=== PATIENT | male | born 1960 ===

== ENCOUNTER 2017-12-12 10:48 | Day surgery (SDC) | payer BC ==
[2017-12-04 10:32] VITALS: BMI 37.8
[2017-12-12] MEDS ORDERED: ceFAZolin IV 1 gm in Dextrose 2 GM/100 ML BAG IVPB ONE (14:42)
[2017-12-12] MEDS ORDERED: Bupivacaine 0.25% 20 ML INJ IJ ONE (14:43)
[2017-12-12] MEDS ORDERED: Lidocaine/Epinephrine 1% 1:100000 10 ML IJ ONE (14:43)
[2017-12-12] MEDS ORDERED: Propofol 10 mg/ml Inj (20 ML) ONE ×2 (14:46→17:43)
[2017-12-12] MEDS ORDERED: Rocuronium 10 mg/ml (5 ml) ONE (17:30)
[2017-12-12] MEDS ORDERED: Neostigmine Methylsulfate 3mg/3ml Syringe IV ONE (17:31)
--- NOTE | 2017-12-12 17:55 | PCM.SURG1 ---
Surgeon's Initial Post Op Note - Surgeon's Notes Surgeon: Dr. Arizmendi [employer] Dealer: Hugo Saul PGY3 Type of Anesthesia: General Endo, Local Pre-Operative Diagnosis: robotic umbilical hernia and ventral hernia repair with mesh Operative Findings: Multiple hernias Post-Operative Diagnosis: Same Operation Performed: robotic umbilical and incisional hernia repair w mesh Specimen/Specimens Removed: hernia contents and sac Estimated Blood Loss: EBL {In ML}: 50 Blood Products Given: N/A Drains Used: No Drains Post-Op Condition: Good Date of Surgery/Procedure: 12/12/17 Time of Surgery/Procedure: 17:55
[2017-12-12] MEDS ORDERED: Lactated Ringer's 1,000 ML IV SCH (18:00)
[2017-12-12] MEDS: HYDROmorphone 0.5 mg/0.5 ml ISec IVP PRN ×2 (18:13→18:29)
[2017-12-12 18:47] VITALS: O2SAT 100
[2017-12-12 20:58] VITALS: BP 138/83; PULSE 97; RESP 15; TEMP 97.9
--- NOTE | 2017-12-15 01:03 | OP ---
PROCEDURE DATE: 12/12/2017 PREOPERATIVE DIAGNOSES: 1. Incisional hernia. 2. Umbilical hernia. 3. Morbid obesity. 4. Possible postoperative adhesions due to previous hernia repair. POSTOPERATIVE DIAGNOSES: 1. Incisional hernia. 2. Umbilical hernia. 3. Morbid obesity. 4. Possible postoperative adhesions due to previous hernia repair. PROCEDURES PERFORMED: 1. Robotic incisional hernia repair with a mesh. 2. Robotic umbilical hernia repair with a mesh. 3. Robotic extensive lysis of adhesion. 4. Laparoscopic bilateral transverse abdominis plane block placement. SURGEON: Steve Arizmendi MD ASSISTANTS: Aramis Nicole DO, PGY-4 resident and Hugo Saul DO, PGY-3 resident ANESTHESIA: General endotracheal tube anesthesia. ESTIMATED BLOOD LOSS: Around 20 mL. DRAINS: None. PATHOLOGY: 1. Incisional hernial sac and contents. 2. Umbilical hernial sac and contents. They were sent for the pathology. COMPLICATIONS: None. INTRAOPERATIVE FINDINGS: The patient had approximately 2 x 1 cm umbilical hernia containing preperitoneal fat, and the patient also had multiple incisional hernial defects at the site of previous hernia repair. The patient also had incarcerated omentum into the incisional hernia. The second operation is robotic incarcerated incisional hernia repair with a mesh. The incarcerated omentum was reduced back into peritoneal cavity. The rest of the omentum as well as the hernial sac was reduced back, and it was sent off the table for the pathology. The patient also had diastasis of recti on the upper and lower parts of the incisional hernia approximately 2 to 3 cm on each side that was also repaired. The patient had extensive postoperative adhesions as well as due to the incarcerated omentum and lysis of adhesion was done. DESCRIPTION OF PROCEDURE: On intraoperative steps, this is a 57-year-old male who was diagnosed with incisional hernia with umbilical hernia. The patient was consented for the robotic incisional hernia repair with a mesh with umbilical hernia repair with a mesh, brought to the OR, placed supine on the operating table. After induction of anesthesia, the abdomen was prepped and draped in the usual sterile fashion. The left upper quadrant incision was made. After incising skin and subcutaneous tissue and the fascia using the Visiport technique, the peritoneal cavity was entered and pneumo was created. Another two 8-mm ports were placed in the left upper quadrant and left flank as well as the right upper quadrant and the right flank, and the robot was brought in. Camera arm as well as arm 1 and arm 2 were docked. The patient had extensive postoperative adhesions. First, extensive lysis of adhesion was done. The patient also had incarcerated omentum in the incisional hernial sac that was reduced back into peritoneal cavity. Extensive enterolysis and lysis of adhesion were done. The peritoneum at the umbilical hernial sac was also reduced back into the peritoneal cavity. Umbilical hernial sac as well as incisional hernia sac and contents were off the table for the pathology. Now, the umbilical hernial defect was closed in two layers with #1 Prolene V-Loc suture, and the incisional hernia multiple defects were also closed with #1 Prolene V-Loc suture in a continuous fashion in two layers. The diastasis of recti on upper and lower parts of the incisional hernia was also repaired in order to prevent the recurrence. After the proper two-layer repair of incisional as well as umbilical hernial defects, approximately 17 x 9 cm large mesh was introduced, and the mesh was implanted. After proper implantation of the mesh, the bilateral laparoscopic TAP block was given. The right and left side 03:30 mL of Marcaine was injected in the transverse abdominal muscle plane. After proper TAP block, all the ports were taken out under vision. Pneumo was deflated. All the port site was closed in two layers, the subcu with a 2-0 Vicryl and the skin with a 4-0 Monocryl. A dry sterile dressing was applied. The patient was extubated in OR, sent to the postanesthesia care in stable condition. Steve Arizmendi MD
== END 2017-12-12 20:20 | disposition home or self-care (01) ==
LOC: C.SDS 10:48
PROVIDERS: ATTEND Surgery Surgical Critical Care
DX: K43.2 Incisional hernia without obstruction or gangrene (principal); K42.9 Umbilical hernia without obstruction or gangrene; E66.01 Morbid (severe) obesity due to excess calories
CPT/HCPCS: 49653; 49655; J0690; J1170; J2405; J2704; J2710; J3010